=== PATIENT | male | born 1950 | race Caucasian/White ===

== ENCOUNTER 2023-04-19 22:26 | Observation (INO) | payer MEDICARE, OTHER, SELFPAY ==
[2023-04-19 18:28] VITALS: BMI 35.6
[2023-04-19 18:42] VITALS: BP 192/83
[2023-04-19 19:05] LABS: % Basophils 0.6 % (0-2); % Eosinophils 2.4 % (0-6); % Immature Granulocytes 0.3 % (0-0.5); % Lymphocytes 19.6 % (20.5-51.1); % Monocytes 8.2 % (1.7-9.3); % Neutrophils 68.9 % (42.2-75.2); Absolute Eosinophils 0.2 10^3/uL (0-0.7); Absolute Lymphocytes 1.4 10^3/uL (1.2-3.4); Absolute Monocytes 0.6 10^3/uL (0.1-0.6); Absolute Neutrophils 4.9 10^3/uL (1.4-6.5); Hematocrit 39.7 % (39.0-52.0); Hemoglobin 13.7 g/dL (13.0-18.0); Mean Corp Hgb Conc. 34.5 g/dL (33.0-37.0); Mean Corpuscular Volume 92.8 fL (80.0-94.0); Mean Platelet Volume 11.8 fL (7.4-10.4); Nucleated Red Blood Cells % 0 % (-); Platelet Count 191 10^3/uL (130-400); Red Blood Cell Count 4.28 10^6/uL (4.70-6.10); Red Cell Dist. Width 13.1 % (11.5-14.5); White Blood Cell Count 7.1 10^3/uL (4.8-10.8)
[2023-04-19 19:17] LABS: ALT (SGPT) 19 U/L (0-50); AST (SGOT) 23 U/L (17-59); Albumin 4.3 g/dl (3.5-5.0); Alkaline Phosphatase 59 U/L (38-126); Blood Urea Nitrogen 21 mg/dl (9-20); Calcium 9.1 mg/dl (8.4-10.2); Carbon Dioxide 31 mmol/L (22-30); Chloride 103 mmol/L (98-107); Glucose 107 mg/dl (70-99); Potassium 5.1 mmol/L (3.5-5.1); Sodium 140 mmol/L (135-145); Total Bilirubin 0.6 mg/dl (0.2-1.3); Total Protein 6.9 g/dl (6.3-8.2); eGFR > 60.00
[2023-04-19 19:50] VITALS: BP 173/95
[2023-04-19 20:00] VITALS: BP 164/82
[2023-04-19 21:00] VITALS: BP 161/91
--- NOTE | 2023-04-19 21:22 | ED.GENMED ---
History of Present Illness
<Amy Irwin PA-C - Last Filed: 04/20/23 00:17>
General
Chief Complaint: Rectal Bleeding
Source: patient
Exam Limitations: none
Time Seen by Provider: 04/19/23 19:48
Nursing documentation reviewed up to this point in time: agreed with
Travel History
Have you had any contact with someone who has COVID-19?: No
Do you have any symptoms of coronavirus? Fever > 100 degrees, chills, cough, shortness of breath, sore throat, loss of taste or smell, muscle aches, or headache?: No
History of Present Illness
History of Present Illness:
pt is a 72 y/o M with h/o internal hemorrhoids and diverticulosis
(colonoscopy 2022, [facility])
had rectal bleeding todya with BM this morning and then 2 other unprovoked episodes of BRBPR with clots
has a little lower abd pain
no vomiting, fever
no h/o thinners
takes baby asa
previously was admited overnight for rectal bleeding and then had outpatient colonoscopy
no banding performed on his hemorrhoids.
pt took his BP at home and it was elevated 170/80
he normally doesn't take meds
Past History
<Amy Irwin PA-C - Last Filed: 04/20/23 00:17>
Past History
ED Past Medical History: HTN, Hypercholesterolemia, Other (hemorrhoids) and Other (BPH, eczema)
ED Past Surgical History: None
Social History
Tobacco: Non-smoker
Alcohol: Occasional
Drug: Other (Medical marijuana)
Living: with family
Review of Systems
<Amy Irwin PA-C - Last Filed: 04/20/23 00:17>
Review of Systems
Allergies reviewed?: Yes
All Other Systems: Not applicable
Phy Exam
<Amy Irwin PA-C - Last Filed: 04/20/23 00:17>
Physical Exam
Physical Exam:
GENERAL: Alert , in no apparent distress
EYE: pupils equal and reactive
NECK: Supple
ENT: o/p clr, mmm.
CARDIAC: Regular rate and rhythm .
LUNGS: Clear breath sounds bilaterally, no acute respiratory distress, no wheezes/rales/rhonchi
ABDOMEN: Soft, mild left lower quad tendenress, no r/g, no cvat, normal bowel sounds
rectum: small nonbleeding external hemrrhoid
blood in vault, pink; no clots
no obvious hemrrhoids on exam
NEUROLOGICAL: Alert and oriented, no focal neuro deficits
SKIN: Warm and dry, skin intact.
MUSCULOSKELETAL: No edema, well perfused.
PSYCH: Normal and appropriate interaction.
Course
<Amy Irwin PA-C - Last Filed: 04/20/23 00:17>
Orders/Labs/Results
Orders:
Orders
04/19/23 18:50
Type+Screen Urgent
Complete Blood Count/With Diff Urgent
Comprehensive Metabolic Panel Urgent
04/19/23 22:16
Admit/Transfer Patient As Directed
Co-Sign Provider:
Level of Care: Observation services
Assign to:: Medical/Surgical
Physician / Group: Dianne Ny - hospitalist
Diagnosis: acute rectal bleeding, HTN urgency
Reason for Hospitalization: acute rectal bleeding, HTN urgency - serial exams, labs, GI evaluation
04/19/23 22:17
Code Status As Directed
Resuscitation Status: Full Code
Abnormal Lab Results
04/19/23
18:50
RBC 4.28 L 10^6/uL
(4.70-6.10)
MCH 32.0 H pg
(27.0-31.0)
MPV 11.8 H fL
(7.4-10.4)
Lymphocytes % 19.6 L %
(20.5-51.1)
Carbon Dioxide 31 H mmol/L
(22-30)
BUN 21 H mg/dl
(9-20)
Glucose 107 H mg/dl
(70-99)
04/19/23 18:50
04/19/23 18:50
Vital Signs
Initial and Last Documented VS:
Initial Vital Signs
Temp Pulse Resp BP Pulse Ox
97.8 F 63 18 192/83 98
04/19/23 18:42 04/19/23 18:42 04/19/23 18:42 04/19/23 18:42 04/19/23 18:42
Last Documented Vital Signs
Temp Pulse Resp BP Pulse Ox
97.8 F 84 18 157/69 94
04/19/23 18:42 04/20/23 00:00 04/20/23 00:00 04/20/23 00:00 04/19/23 23:00
<Akash Lord MD - Last Filed: 04/19/23 22:08>
Orders/Labs/Results
Orders:
Orders
04/19/23 18:50
Type+Screen Urgent
Complete Blood Count/With Diff Urgent
Comprehensive Metabolic Panel Urgent
04/19/23 22:16
Admit/Transfer Patient As Directed
Co-Sign Provider:
Level of Care: Observation services
Assign to:: Medical/Surgical
Physician / Group: Dianne Ny - hospitalist
Diagnosis: acute rectal bleeding, HTN urgency
Reason for Hospitalization: acute rectal bleeding, HTN urgency - serial exams, labs, GI evaluation
04/19/23 22:17
Code Status As Directed
Resuscitation Status: Full Code
Abnormal Lab Results
04/19/23
18:50
RBC 4.28 L 10^6/uL
(4.70-6.10)
MCH 32.0 H pg
(27.0-31.0)
MPV 11.8 H fL
(7.4-10.4)
Lymphocytes % 19.6 L %
(20.5-51.1)
Carbon Dioxide 31 H mmol/L
(22-30)
BUN 21 H mg/dl
(9-20)
Glucose 107 H mg/dl
(70-99)
04/19/23 18:50
04/19/23 18:50
Vital Signs
Initial and Last Documented VS:
Initial Vital Signs
Temp Pulse Resp BP Pulse Ox
97.8 F 63 18 192/83 98
04/19/23 18:42 04/19/23 18:42 04/19/23 18:42 04/19/23 18:42 04/19/23 18:42
Last Documented Vital Signs
Temp Pulse Resp BP Pulse Ox
97.8 F 84 18 157/69 94
04/19/23 18:42 04/20/23 00:00 04/20/23 00:00 04/20/23 00:00 04/19/23 23:00
<Amy Irwin PA-C - Last Filed: 04/20/23 00:17>
MDM/Problems Addressed
Differential Diagnosis Includes:
hemorrhoidal bleeding, divertic
MDM/Problems Addressed:
72 y/o M with h/o int hemorrhoids and divertic; on baby asa, no thinners; 3 episodes BRBPR, larger volume this am with stool, then 2 episodes without stool, with clots; some mild cramping lower abdomen; bp and hg are reassuring; d/w dr. lord,who
recommended since pt having multiple episodes to obs overniight; pt still feels urge to defecate
do not feel that imaging is helpful at this itme
defer to GI
admit to hospitalist.
<Amy Irwin PA-C - Last Filed: 04/20/23 00:17>
*Critical Care Note
Total Time (30-74mins, 75-104mins- exclusive of procedures): Not Applicable
ED Attending Note
<Amy Irwin PA-C - Last Filed: 04/20/23 00:17>
-
Portions of this chart may have been created with voice recognition software.� Occasional wrong word or��sound alike� substitutions may have occurred due to the inherent limitations of voice recognition software.
<Akash Lord MD - Last Filed: 04/19/23 22:08>
ED Attending Note
I performed the substantive portion of visit, reviewed & personally made and approve the management plan that is documented in note by myself or LINDA.: Yes
ED Attending Note:
I did not examine the patient although he clinically is very stable and in no distress. However had a lengthy discussion with him concerning his bright red rectal bleeding. Despite being stable with a stable hemoglobin, recurrent episodes
appropriately warrant inpatient observation. Patient has elected to change his mind and will stay
Discharge Plan
Departure
Patient Disposition: Admit
Date of Disposition: 04/19/23
Time of Disposition: 21:30
Admit to: Med/Surg
Presentation/result/management discussed w/ accepting MD/DO: Hospitalist
Condition: Fair
Covid-19: Not Applicable
Discharge Problem:
GI bleed
Interventions
Interventions:
*Risk Screen - Suicide Last Done: 04/19/23 18:42
*General Assessment Last Done: 04/19/23 18:42
*Neglect/Abuse Screening Last Done: 04/19/23 18:42
ED- Fall Risk Assessment Last Done: 04/19/23 20:08
*ED COVID-19 Vaccine History Last Done: 04/19/23 18:42
PF-Oswfrp-Bdwupccnzf Assessment Last Done: 04/19/23 20:08
ED- Cardiac Assessment Last Done: 04/19/23 20:08
ED- Pulmonary Assessment Last Done: 04/19/23 20:08
[2023-04-19 22:00] VITALS: BP 170/89
--- NOTE | 2023-04-19 22:08 | HPS.HSE ---
Family Physician
-
Family Physician: Oral Chen
Chief Complaint
-
GI bleed
History of Present Illness
72 y/o M, hx of chronic back pain, BPH, HLD, hx of hemorrhoids with colonoscopy 1 year ago presents to ER with GI bleed. Patient states he first had bleed this morning - rectal and 'moderate amount'. He states he has had several movements since then
with decreasing amount of blood passage including the most recent 1 in the ER without blood seen. Denies any abd pain, n/v, no lightheadedness or dizziness. Prior to ER visit, he checked his BP and it was 190s - this prompted him to come to the ER.
At present BP is 170s.
Patient initially was in mindset to dc home but opted to stay for observation. Labs/Hb stable from prior.
Medical History
Past Medical History
Past Medical History: Reports Other (chronic back pain, BPH, HLD, hx of hemorrhoids)
Past Surgical History: Reports None
Social History
Tobacco: Non-smoker
Alcohol: Occasional
Drug: Marijuana
Personal:
Living: With Family
Family History
Family History: Not pertinent
Allergies / Home Medications
Allergies reflects when Allergies were last updated in [employer].
Home Medications with original date entered in [employer]
Allergy/Medication List:
Allergies
Allergy/AdvReac Type Severity Reaction Status Date / Time
Penicillins Allergy Unknown Verified 02/19/22 13:33
Home Medications
alfuzosin 10 mg tablet,extended release 24 hr 10 mg PO DAILY Urinary issue 11/23/13
aspirin 81 mg tablet,delayed release 81 mg PO MOWEFR Blood clot prevention/tx 11/23/13
Medical Marijuana 1 puff inhalation DAILYPRN PRN anixety 02/19/22
ezetimibe 10 mg tablet (Zetia) 10 mg PO DAILY High cholesterol 02/19/22
meloxicam 15 mg tablet 7.5 mg PO DAILY PRN mild pain 02/19/22
multivitamin 1 tab PO DAILY Supplement 02/19/22
riboflavin (vitamin B2) 400 mg tablet 400 mg PO DAILY Supplement 02/19/22
tadalafil 5 mg tablet 5 mg PO DAILY ed 02/19/22
hydrocortisone acetate 25 mg rectal suppository 25 mg DE HSPRN PRN hemorrhoids 04/19/23
Review of Systems
-
A 12 point ROS was completed and negative except as noted: Yes
Physical Exam
Vital Signs
Vital Signs
Temp Pulse Resp BP Pulse Ox
97.8 F 61 18 161/91 97
04/19/23 18:42 04/19/23 21:30 04/19/23 21:30 04/19/23 21:00 04/19/23 21:30
Physical Exam
General: Well Developed and Well Nourished
HEENT: NormoCephalic and Anicteric
Respiratory: No Wheezes or Rales
Cardiac: S1/S2 and Regular Rhythm
GI: Soft and Non Tender
Genito-urinary: Clear Urine
Musculoskeletal: No Clubbing
Neuro: AO x 3
Hematologic/Lymphatic: No Lymphadenopathy
Psych: Calm
Laboratory Results
-
04/19/23 18:50
04/19/23 18:50
Laboratory Results
Total Bilirubin 0.6 mg/dl (0.2-1.3) 04/19/23 18:50
AST 23 U/L (17-59) 04/19/23 18:50
ALT 19 U/L (0-50) 04/19/23 18:50
Alkaline Phosphatase 59 U/L (38-126) 04/19/23 18:50
Data Reviewed
-
Lab Data: Labs Reviewed by me
Impression/Plan
-
Assessment:
Rectal bleeding
Known Hemorrhoids
- OBS admission
- serial movements have resulted in clearing of bleed; Hb stable
- follow for signs of bleeding and monitor Hb
- hold home aspirin
- GI consult; known to Dr. Manrique. Last C-scope 1 year ago with internal hemorrhoids.
HTN urgency
- I suspect this is compensatory in response to GI bleed; patient reports baseline is 130/80s
- already improving without intervention
- monitor for now, make Hydralazine available for PRN >180
chronic back pain
BPH
- continue Alfuzosin
HLD
- continue Zetia
DVT ppx: SCDs
Code: Full
[2023-04-19 23:00] VITALS: BP 166/89
[2023-04-20] VITALS (7 sets, daily range): BP systolic 139–160; BP diastolic 61–79
[2023-04-20] MEDS: FLUSH (NSS) 1 FLUSH IV (02:40)
--- NOTE | 2023-04-20 06:46 | CON.GI ---
Addendum entered and electronically signed by Cheryl Sy MD 04/20/23 12:15:
I saw and examined the patient.
The LAUNDRY WASHER's note was reviewed and I agree with the note.
Comment: This is a 70-year-old male who presented after having 3-4 episodes of painless rectal bleeding yesterday. But what prompted him to really come into the emergency room was elevated blood pressure yesterday. He says that a couple of months
ago he did have elevated blood pressure and then he saw his primary care physician and was on medication for couple of months but his blood pressure had normalized even off of medication so has been off of meds. He says that the bleeding has since
resolved and his hemoglobin on admission has been stable and normal. He did have a colonoscopy in February 2022 as below
Assessment and plan painless rectal bleeding most likely related to hemorrhoids, he says that he did use Anusol suppository which he uses as needed for rectal bleeding/hemorrhoids symptoms and bleeding has resolved. He did have recent use of
meloxicam and on ASA 81 mg at home. doubt diverticular bleed, hemoglobin remained stable. I told him to avoid NSAIDs, Ok to restart ASA, okay to DC home from a GI perspective as long as his blood pressure remains stable. I told him to use MiraLAX
as needed if he is constipated and also start taking Metamucil daily.
Original Note:
Consultation
-
Date/Time Consultation Requested: 04/20/2344
Date/Time Consultation Performed: 04/20/23844
Requesting Provider: Dianne Ny MD
Performing Provider: VANDA Nick, Cheryl Sy MD
Reason for Consultation: GI bleed
Medical History
Chief Complaint / HPI
Chief Complaint: rectal bleeding
History of Present Illness:
Pt is a 72yo with hx chronic back pain on Meloxicam 3 tabs in last 2 weeks, BPH, HLD, sleep apnea, colon polyps, hemorrhoids presents to ER with complaints of rectal bleeding passing bright red blood per rectum. Per pt has 4 episode 3/5 between
10AM then last episode 4:30 PM with 2 larger volumes of blood with formed stool and 2 episodes with gas and small volume blood and clot. No further episode overnight. Pt states as bleeding improved at home was not coming to ER but noted elevated BP
up to 170-190 range and then presented to ER. ER rectal with small hemorrhoids, blood in vault with pink tinge no clots. On admission hbg 13.7 with BUN 21. Last colonoscopy 02/2022 with 3 mm polyp cecum- TA diverticulosis, internal hemorrhoids.
Pt otherwise states bowel are regular. He denies dysphagia, GERD, nausea, vomiting, abdominal pain, or black stools.
Past Medical History
Past Medical History: HTN, Hypercholesterolemia and Other (chronic back pain, BPH, hemorrhoids, cognitive issues, sleep apnea, obesity)
Past Surgical History: Orthopedic (left wrist fracture, cataract surgery) and Other (basal cell removal)
Social History
Tobacco: Non-Smoker
Alcohol: Occasional (few beers per week)
Drug: None
Personal:
Living: With Family
Employment: Retired
Family History
Family History: Other (no family hx colon CA or polyps)
Allergies / Home Medications
Allergy/AdvReac Type Severity Reaction Status Date / Time
Penicillins Allergy Unknown Verified 02/19/22 13:33
Medication Instructions Recorded
alfuzosin 10 mg tablet,extended 10 mg PO DAILY Urinary issue 11/23/13
release 24 hr
aspirin 81 mg tablet,delayed 81 mg PO MOWEFR Blood clot 11/23/13
release prevention/tx
Medical Marijuana 1 puff inhalation DAILYPRN PRN 02/19/22
anixety
ezetimibe 10 mg tablet (Zetia) 10 mg PO DAILY High cholesterol 02/19/22
meloxicam 15 mg tablet 7.5 mg PO DAILY PRN mild pain 02/19/22
multivitamin 1 tab PO DAILY Supplement 02/19/22
riboflavin (vitamin B2) 400 mg 400 mg PO DAILY Supplement 02/19/22
tablet
tadalafil 5 mg tablet 5 mg PO DAILY ed 02/19/22
hydrocortisone acetate 25 mg 25 mg OR HSPRN PRN hemorrhiods 04/19/23
rectal suppository
Review of Systems
-
History Source: Patient
Constitutional: Reports Weight Gain (few lbs with back issues)
EENT: Reports No Symptoms
Respiratory: Reports No Symptoms
Cardiac: Reports No Symptoms
Abdomen/GI: Reports Bloody Stools
: Reports No Symptoms
Musculoskeletal: Reports Other (back pain worse with sleeping overnight )
Skin: Reports No Symptoms
Neurological: Reports No Symptoms
Endocrine: Reports No Symptoms
Hematologic/Lymphatic: Reports Bleeding
Vital Signs
Temp Pulse Resp BP Pulse Ox
97.8 F 60 14 145/61 94
04/19/23 18:42 04/20/23 03:30 04/20/23 03:30 04/20/23 03:03 04/20/23 03:30
Physical Exam
Exam
General: Well Developed, Well Nourished and No Apparent Distress
HEENT: Normocephalic
Respiratory: Clear
Cardiac: Regular Rhythm
GI: Soft and Non Distended
Rectal: Other (hemorrhoids, pink tinge per ER)
Musculoskeletal: No Clubbing and No Cyanosis
Skin: Warm and Dry
Neuro: Awake, Alert and AO x 3
Psych: Calm
Results
WBC 7.1 10^3/uL (4.8-10.8) 04/19/23 18:50
Hgb 13.7 g/dL (13.0-18.0) 04/19/23 18:50
Hct 39.7 % (39.0-52.0) 04/19/23 18:50
MCV 92.8 fL (80.0-94.0) 04/19/23 18:50
Plt Count 191 10^3/uL (130-400) 04/19/23 18:50
Absolute Neuts (auto) 4.9 10^3/uL (1.4-6.5) 04/19/23 18:50
Sodium 140 mmol/L (135-145) 04/19/23 18:50
Potassium 5.1 mmol/L (3.5-5.1) 04/19/23 18:50
Chloride 103 mmol/L (98-107) 04/19/23 18:50
Carbon Dioxide 31 mmol/L (22-30) H 04/19/23 18:50
BUN 21 mg/dl (9-20) H 04/19/23 18:50
Creatinine 1.0 mg/dL (0.7-1.3) 04/19/23 18:50
Calcium 9.1 mg/dl (8.4-10.2) 04/19/23 18:50
Total Bilirubin 0.6 mg/dl (0.2-1.3) 04/19/23 18:50
AST 23 U/L (17-59) 04/19/23 18:50
ALT 19 U/L (0-50) 04/19/23 18:50
Alkaline Phosphatase 59 U/L (38-126) 04/19/23 18:50
Diagnostic Image Results:
2021 CT Chest/abd/pelvis
CHEST:
1. Mild centrilobular emphysema.
2. Small subpleural groundglass opacity in the posterolateral right upper lobe, which is favored to represent a focus of atelectasis or scarring.
ABDOMEN:
1. Bilateral renal cysts, and a small hepatic cyst.
2. Colonic diverticulosis.
3. Mild prostatomegaly
Prior GI Procedures:
EGD: none
Colonoscopy: 02/2022 - One 3 mm polyp in the cecum, removed with a jumbo
�� � � � � � � � � � � cold forceps. Resected and retrieved. bx TA
�� � � � � � � � � � � - Diverticulosis in the sigmoid colon.
�� � � � � � � � � � � - Internal hemorrhoids.
�� � � � � � � � � � � - The examination was otherwise normal.
Assessment / Plan
-
Pt is a 72yo with hx chronic back pain on Meloxicam 3 tabs in last 2 weeks, BPH, HLD, sleep apnea, colon polyps, hemorrhoids presents to ER with complaints of rectal bleeding passing bright red blood per rectum. Per pt has 4 episode 3/5 between
10AM then last episode 4:30 PM with 2 larger volumes of blood with formed stool and 2 episodes with gas and small volume blood and clot. No further episode overnight. Pt states as bleeding improved at home was not coming to ER but noted elevated BP
up to 170-190 range and then presented to ER. ER rectal with small hemorrhoids, blood in vault with pink tinge no clots. On admission hbg 13.7 with BUN 21. Last colonoscopy 02/2022 with 3 mm polyp cecum- TA diverticulosis, internal hemorrhoids.
-rectal bleeding
-hx colon polyp/hemorrhoids per colonoscopy 2022
-HTN
other medical problems:
-chronic back pain
-BPH
-sleep apnea
-obesity
PLAN:
etiology of bleeding related to hemorrhoids, diverticular bleeding, vs less likely but in differential upper GI bleed with hx meloxicam use vs other
trend stool output and hbg
no bleeding since 4:30 Pm 04/18
agree with regular diet
if increased bleeding consider CTA vs flex sig
if no further bleeding stable from GI for discharge today
advised add fiber supplement in 3 weeks
return after discharge for recurrent bleeding
discussed caution with Meloxicam use and risk of GI bleeding
pt with some uncontrolled BP on admission cont management per hospitalist
-
-
Thank you for consultation and allowing me to participate in the patient's care. Please call the [facility] GI physician during the after hours with any questions or concerns.
[2023-04-20 07:02] LABS: Blood Urea Nitrogen 21 mg/dl (9-20); Calcium 8.8 mg/dl (8.4-10.2); Carbon Dioxide 27 mmol/L (22-30); Chloride 107 mmol/L (98-107); Estimated Creatinine Clearance 78 ml/min; Glucose 89 mg/dl (70-99); Potassium 4.5 mmol/L (3.5-5.1); Sodium 139 mmol/L (135-145); eGFR > 60.00
[2023-04-20 07:04] LABS: Hematocrit 41.4 % (39.0-52.0); Hemoglobin 13.9 g/dL (13.0-18.0); Mean Corp Hgb Conc. 33.6 g/dL (33.0-37.0); Mean Corpuscular Hgb 32.1 pg (27.0-31.0); Mean Corpuscular Volume 95.6 fL (80.0-94.0); Mean Platelet Volume 12.6 fL (7.4-10.4); Platelet Count 184 10^3/uL (130-400); Red Blood Cell Count 4.33 10^6/uL (4.70-6.10); Red Cell Dist. Width 12.9 % (11.5-14.5); White Blood Cell Count 7.8 10^3/uL (4.8-10.8)
[2023-04-20] MEDS: ZETIA 10 MG PO (08:07)
[2023-04-20] MEDS: FLOMAX 0.400000000000000022 MG PO (08:08)
--- NOTE | 2023-04-20 08:53 | EDRN ---
Assumed care. Pt is a HOLD admit M/S level of care. AAOx4. Amb in room with steady gait. VS stable. No bleeding reported. Normotensive. AM Care supplies provided. Breakfast ordered, AM meds administered. INT noted LH.
--- NOTE | 2023-04-20 11:31 | W.PN.HOSP.TC ---
Today's Communication/Plan
-
Fiber supplements
prep H
Assessment / Plan
Assessment / Plan
General: Well Developed and Well Nourished
HEENT: NormoCephalic and Anicteric
Respiratory: No Wheezes or Rales
Cardiac: S1/S2 and Regular Rhythm
GI: Soft and Non Tender
Genito-urinary: Clear Urine
Musculoskeletal: No Clubbing
Neuro: AO x 3
Hematologic/Lymphatic: No Lymphadenopathy
Psych: Calm
Rectal bleeding
Known Hemorrhoids
- serial movements have resulted in clearing of bleed; Hb stable
- follow for signs of bleeding and monitor Hb
- restart home aspirin. Recommend to increase fiber. Cont with hydrocortisone suppository.
- GI consult; known to Dr. Manrique. Last C-scope 1 year ago with internal hemorrhoids.
HTN elevated in setting of back pain.
patient reports baseline is 130/80s. Currently at 159/73. Earlier was 139/79.
-states wants to talk to pcp before starting standing meds.
-monitor for now. DC on prn hydralazine prn >160
chronic back pain
-avoid NSAIDs.
BPH
- continue Alfuzosin
HLD
- continue Zetia
DVT ppx: SCDs
Code: Full
More than 30 minutes spent in discharge including
Final examination of the patient
Summarizing hospital stay
Instructions for continuing care to all relevant caregivers
Preparation of discharge records, prescriptions, and referral forms
Total time spent (in minutes): 45
Anticipated Discharge: Today
Subjective/Interval History
-
Date of Service: April 20, 2023
Denies abd pain or nausea or vomiting
tolerated diet
states bleeding stopped
Objective Data
-
Labs:
Laboratory Results
04/20/23
06:05
WBC 7.8
Hgb 13.9
Hct 41.4
Plt Count 184
Sodium 139
Potassium 4.5
Chloride 107
Carbon Dioxide 27
BUN 21 H
Creatinine 1.0
Glucose 89
Calcium 8.8
Vital Signs:
Vital Signs
Temp Pulse Resp BP Pulse Ox
98.2 F 70 16 159/73 94
04/20/23 07:31 04/20/23 07:31 04/20/23 07:31 04/20/23 07:31 04/20/23 07:31
--- NOTE | 2023-04-20 12:20 | W.DCSUMMARY ---
Discharge Summary
Discharge Data
Date of Admission: 04/19/23
Date of Discharge: 04/20/23
-
Pending Results: No
Hospital Course
72-year-old male past medical history of hemorrhoids, chronic back pain, BPH, hyperlipidemia who is presented with bright red blood per rectum. Patient states he has history of hemorrhoids. No abdominal pain nausea Stated 3-4 episodes of rectal
bleeding. Also noticed that his blood pressure was high and decided to come into the ER. Patient symptoms resolved and did not have any further bleeding. Stated he was passing gas and had a bowel movement. Patient was also found to elevated
blood pressure. Patient stated that usually happens during episode of hemorrhoidal bleeding. States that at home his blood pressure is usually well-controlled and systolic usually 130. Patient was eval by gastroenterology and recommended to avoid
NSAIDs. Recommended fiber supplementation and MiraLAX. Recommended MiraLAX as needed. Also recommend hydralazine as needed. Patient refused to be started on standing blood pressure medication stable talked with primary doctor. Since patient
symptoms resolved and hemoglobin was stable and was cleared by gastroenterology patient was discharged home with recommendation to follow with primary doctor.
Discharge Plan
-
Patient Disposition: Home (Routine Discharge)
Discharge Diagnosis/Procedures: Lower gastrointestinal bleeding likely hemorrhoidal
Elevated blood pressure
Condition: Fair
Diet: As tolerated
Activity: With assistance and As tolerated
Driving Restrictions: As prior to admission
Blood Work: cbc in 1 week via primary doctor.
Activity Restrictions/Additional Instructions:
return to ER if with recurrent bleeding
Referrals:
Oral Chen MD [Family Provider] - in less than 1 week
Additional Discharge Medication Instructions: Recommend to stop meloxicam.
Prescriptions:
New
hydralazine 10 mg tablet
10 mg PO BID PRN (Reason: BP>160/90) Qty: 60 0RF
psyllium husk [Metamucil] 0.4 gram capsule
0.4 g PO DAILY Qty: 30 0RF
polyethylene glycol 3350 [Miralax] 17 gram powder in packet
17 g PO DAILY PRN (Reason: Constipation) Qty: 30 0RF
Continued
aspirin 81 MG tablet,delayed release (DR/EC)
81 mg PO MOWEFR
alfuzosin 10 MG tablet extended release 24 hr
10 mg PO DAILY
ezetimibe [Zetia] 10 mg Tablet
10 mg PO DAILY
tadalafil 5 mg Tablet
5 mg PO DAILY
riboflavin (vitamin B2) 400 mg Tablet
400 mg PO DAILY
multivitamin Tablet
1 tab PO DAILY
Medical Marijuana
1 puff inhalation DAILYPRN PRN (Reason: anixety)
Patient Comments:
02/19/2022: Pt uses vape and tincutures from [employer]
hydrocortisone acetate 25 mg suppository
25 mg NV HSPRN PRN (Reason: hemorrhiods)
Discontinued
meloxicam 15 mg tablet
7.5 mg PO DAILY PRN (Reason: mild pain)
Discharge Orders:
Discharge Patient (As Directed); Ordered 04/20/23
Ordered By: James Mata
Discharge Date and Time
Discharge Date/Time: 04/20/23 12:41
== END 2023-04-20 12:41 | disposition home or self-care (01) ==
LOC: ED 22:26
PROVIDERS: Emergency Medicine; ADMITTING PHYSICIAN Internal Medicine; ATTENDING PHYSICIAN Hospitalist; CONSULT PHYSICIAN Internal Medicine Gastroenterology; FAMILY PHYSICIAN Internal Medicine Geriatric Medicine
DX: K62.5 Hemorrhage of anus and rectum (principal); K64.8 Other hemorrhoids; I16.0 Hypertensive urgency; G89.29 Other chronic pain; N40.0 Benign prostatic hyperplasia without lower urinary tract symptoms; E78.5 Hyperlipidemia, unspecified; G47.30 Sleep apnea, unspecified; E66.9 Obesity, unspecified; Z68.35 Body mass index [BMI] 35.0-35.9, adult; Z79.82 Long term (current) use of aspirin; Z79.899 Other long term (current) drug therapy; Z87.19 Personal history of other diseases of the digestive system
CPT/HCPCS: 80048; 80053; 85025; 85027; 86850; 86900; 86901; 99284; G0378

== ENCOUNTER → 2023-06-28 10:28 | Outpatient (REF) | payer MEDICARE, OTHER, SELFPAY | LOC: HWRAD 10:28 | PROVIDERS: ATTENDING PHYSICIAN Internal Medicine Geriatric Medicine | DX: R47.9 Unspecified speech disturbances (principal); J43.9 Emphysema, unspecified; E78.2 Mixed hyperlipidemia; I11.9 Hypertensive heart disease without heart failure; N52.9 Male erectile dysfunction, unspecified; N40.1 Benign prostatic hyperplasia with lower urinary tract symptoms; G47.33 Obstructive sleep apnea (adult) (pediatric); G89.4 Chronic pain syndrome; E66.9 Obesity, unspecified; I70.0 Atherosclerosis of aorta; Z13.31 Encounter for screening for depression; R09.81 Nasal congestion; H61.23 Impacted cerumen, bilateral; R61 Generalized hyperhidrosis; R68.89 Other general symptoms and signs; Z79.899 Other long term (current) drug therapy; E55.9 Vitamin D deficiency, unspecified; R53.83 Other fatigue; D64.9 Anemia, unspecified; Z13.89 Encounter for screening for other disorder; Z13.820 Encounter for screening for osteoporosis; M81.0 Age-related osteoporosis without current pathological fracture | CPT/HCPCS: 77080 ==

== ENCOUNTER → 2024-01-02 12:44 | Outpatient (REF) | payer MEDICARE, OTHER, SELFPAY | LOC: HWRAD 12:44 | PROVIDERS: ATTENDING PHYSICIAN Internal Medicine Geriatric Medicine | DX: E78.2 Mixed hyperlipidemia (principal); I11.9 Hypertensive heart disease without heart failure; N52.9 Male erectile dysfunction, unspecified; N40.1 Benign prostatic hyperplasia with lower urinary tract symptoms; G47.33 Obstructive sleep apnea (adult) (pediatric); G89.4 Chronic pain syndrome; E66.9 Obesity, unspecified; I70.0 Atherosclerosis of aorta; Z13.31 Encounter for screening for depression; Z79.899 Other long term (current) drug therapy; E55.9 Vitamin D deficiency, unspecified; Z13.89 Encounter for screening for other disorder; R53.83 Other fatigue; D64.9 Anemia, unspecified; K62.5 Hemorrhage of anus and rectum; K57.92 Diverticulitis of intestine, part unspecified, without perforation or abscess without bleeding; R42 Dizziness and giddiness; R47.01 Aphasia | CPT/HCPCS: 70496; 70498; Q9967 ==

== ENCOUNTER → 2024-02-29 18:44 | Outpatient (REF) | payer MEDICARE, OTHER, SELFPAY | LOC: MRI 3T 18:44 | PROVIDERS: ATTENDING PHYSICIAN Internal Medicine Geriatric Medicine | DX: L40.50 Arthropathic psoriasis, unspecified (principal); I68.2 Cerebral arteritis in other diseases classified elsewhere | CPT/HCPCS: 70546; A9585 ==

== ENCOUNTER → 2024-09-19 13:35 | Outpatient (REF) | payer MEDICARE, OTHER, SELFPAY | LOC: RCS 13:35 | PROVIDERS: ATTENDING PHYSICIAN Internal Medicine Geriatric Medicine | DX: Z00.00 Encounter for general adult medical examination without abnormal findings (principal); E78.2 Mixed hyperlipidemia; L40.50 Arthropathic psoriasis, unspecified; R06.09 Other forms of dyspnea; E55.9 Vitamin D deficiency, unspecified; D64.9 Anemia, unspecified; Z79.899 Other long term (current) drug therapy | CPT/HCPCS: 93017; 93350 ==

== ENCOUNTER → 2024-10-08 15:33 | Outpatient (REF) | payer MEDICARE, OTHER, SELFPAY | LOC: RAD 15:33 | PROVIDERS: ATTENDING PHYSICIAN Surgery; FAMILY PHYSICIAN Internal Medicine Geriatric Medicine | DX: R10.30 Lower abdominal pain, unspecified (principal); D64.9 Anemia, unspecified | CPT/HCPCS: 74177; Q9967 ==